=== PATIENT | female | born 1990 | race African-American/Black ===

== ENCOUNTER 2016-09-15 20:39 | Emergency (ER) | payer OTHER ==
[2016-09-15 22:10] LABS: BILIRUBIN NEGATIVE (NEGATIVE); BLOOD NEGATIVE Ery/uL (NEGATIVE); CLARITY SLIGHTLY HAZY (CLEAR); COLOR YELLOW (YELLOW); GLUCOSE (U) NORMAL (NORMAL); KETONE (U) NEGATIVE (NEGATIVE); LEUKOCYTES NEGATIVE Leu/uL (NEGATIVE); NITRITE NEGATIVE (NEGATIVE); PROTEIN 2+ mg/dL (NEGATIVE); pH 8.5 (5.0-9.0)
[2016-09-15 22:17] LABS: BACTERIA TRACE
[2016-09-15 23:00] LABS: BASOPHIL 0.1 % (0-2); EOSINOPHIL 1.8 % (0-5); HCT 32.5 % (37.0-47.0); HGB 11.5 g/dl (12.5-16.0); LYMPHOCYTE 31.5 % (15-48); MCH 29.9 pg (25.0-31.0); MCHC 35.4 g/dL (32.0-36.0); MCV 84.6 fL (78.0-100.0); MONOCYTE 6.4 % (0-12); NEUTROPHIL 60.2 % (41-80); PLT 212 K/uL (150-400); RBC 3.84 M/uL (4.20-5.40); RDW 13.5 % (11.5-14.0); WBC 7.2 K/uL (4.0-10.5)
[2016-09-15 23:11] LABS: ALBUMIN 4.1 g/dL (3.5-5.0); BILIRUBIN - TOTAL 0.3 mg/dL (0.1-1.0); CREATININE 0.5 mg/dL (0.5-1.0); GLOBULIN (CALCULATION) 3.3 g/dL (2.2-4.2); POTASSIUM 3.4 mmol/L (3.5-5.1); TOTAL PROTEIN 7.4 g/dL (6.4-8.3)
== END 2016-09-16 00:14 | disposition home or self-care (01) ==
LOC: FER 20:39
PROVIDERS: Emergency Medicine Emergency Medical Services
DX: O99.89 Other specified diseases and conditions complicating pregnancy, childbirth and the puerperium (principal); R10.84 Generalized abdominal pain; M54.5 Low back pain; O99.332 Smoking (tobacco) complicating pregnancy, second trimester; F17.200 Nicotine dependence, unspecified, uncomplicated; Z3A.14 14 weeks gestation of pregnancy
CPT/HCPCS: 36415; 80053; 81001; 82150; 83690; 84702; 85025